=== PATIENT | female | born 1955 | race Two or more races ===

== ENCOUNTER 2017-08-06 06:19 | Emergency (ER) | payer SELFPAY ==
[~2017-08-06] VITALS: Ht 149.9 cm; Wt 63.5 kg
[~2017-08-06 06:19] MED LIST: IBUPROFEN600 MG PO; VICODIN 5-5001 EACH PO
[2017-08-06 06:45] VITALS: BP 132/82
--- NOTE | 2017-08-06 06:52 | Emergency Room Report ---
History of Present Illness General Chief Complaint: Multiple Trauma/Fall Source: Patient Present Illness HPI The patient presents 3 weeks after a fall. She was in her bathroom and slipped on coffee that she spilled after she saw a mouse. She hit both of her knees and also the right side of her face. She still has jaw pain and swelling in the side of her jaw. She also has some dizziness. She has bilateral knee pain and lower back pain. She has a history of back problems and had x-rays done 6 years ago that were negative. The pain radiates somewhat down the left side of her back. She states she scraped both of her knees and the scrapes have healed. She's having difficulty at work. She can't sit for prolonged period of time and also has some lower back pain when she's moving about. There is no incontinence, perineal numbness, incontinence, blood thinners, oncologic problems. No fevers, chills, chest pain, palpitations, nausea, vomiting, diarrhea, dysuria , abdominal pain, shortness of breath, depression, visual changes. 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 Now: No Reviewed Nursing Documentation: PMH: Agreed; PSxH: Agreed Nursing Documentation-PMH Past Medical History: No History, Except For Hx Asthma: Yes Review of Systems All Other Systems: negative except mentioned in HPI Physical Exam Vital Signs Date Time Temp Pulse Resp B/P (MAP) Pulse Ox O2 Delivery O2 Flow Rate FiO2 08/06/17 06:25 98.0 88 16 132/82 96 Room Air 98.1 Sp02 EP Interpretation: reviewed, normal General Appearance: well appearing, no apparent distress Head: normocephalic, atraumatic Eyes: bilateral eye normal inspection, bilateral eye PERRL ENT: hearing grossly normal, normal voice, moist mucus membranes, other - The TMJ, there is a nodule in the cheek on the right-hand side Neck: full range of motion, supple Respiratory: no respiratory distress, speaking full sentences Cardiovascular #1: regular rate, rhythm Cardiovascular #2: 2+ radial (R) Gastrointestinal: normal bowel sounds Genitourinary: no CVA tenderness Musculoskeletal: digits/nails normal, gait/station normal, normal range of motion, no calf tenderness, other - Muscle spasms and upper and lower back. Straight leg raise is negative bilaterally Neurologic: alert, oriented x3, motor strength/tone normal, DTRs symmetric, sensory intact, cerebellar normal, normal gait, speech normal Psychiatric: mood/affect normal Reflexes: 2+ knee (R), 2+ knee (L); 1+ ankle (R), 1+ ankle (L) Skin: abrasions - healed bilateral knees, larger L Medical Decision Making Diagnostic Impression: Primary Impression: Multiple injuries due to trauma ER Course Patient presents 3 weeks post trauma with facial pain dizziness back pain and knee pain. Based on her history and exam no x-rays are indicated at this time. She needs to be evaluated by her own doctor and have physical therapy prescribed. Differential includes sciatica, contusion, postconcussive syndrome , nodule post hematoma on the right-hand side of the face. The patient will be given Motrin here. I discussed the need for physical therapy and re-evaluation of the nodule in her cheek. She understands the treatment plan. The patient is stable for outpatient observation and treatment. Last Vital Signs Date Time Temp Pulse Resp B/P (MAP) Pulse Ox O2 Delivery O2 Flow Rate FiO2 08/06/17 07:04 0/0 08/06/17 06:51 98.0 08/06/17 06:45 88 16 96 Room Air Status: improved Disposition: HOME, SELF-CARE Condition: Improved Scripts Methocarbamol* (ROBAXIN*) 500 Mg Tablet 500 MG PO TID, #10 TAB 0 Refills Prov: Armando Landis M.D. 08/06/17 Tramadol Hcl* (ULTRAM*) 50 Mg Tablet 50 MG ORAL Q6H PRN for For Pain, #10 TAB 0 Refills Prov: Armando Landis M.D. 08/06/17 Ibuprofen* (MOTRIN*) 600 Mg Tablet 600 MG ORAL Q6H PRN for For Pain, #20 TAB Prov: Armando Landis M.D. 08/06/17 Armando Landis M.D. Aug 06, 2017 06:52
[2017-08-06] MEDS ORDERED: ROBAXIN500 MG PO (06:58)
[2017-08-06] MEDS ORDERED: TRAMADOL HCL50 MG ORAL (06:58)
[2017-08-06] MEDS ORDERED: IBUPROFEN600 MG ORAL (06:58)
[2017-08-06 07:04] VITALS: BP 0/0
== END 2017-08-06 07:04 | disposition home or self-care (01) ==
LOC: EMR 06:43
DX: R68.84 Jaw pain (principal); R42 Dizziness and giddiness; M54.5 Low back pain; M25.561 Pain in right knee; F17.200 Nicotine dependence, unspecified, uncomplicated; Z88.8 Allergy status to other drugs, medicaments and biological substances; M62.838 Other muscle spasm
CPT/HCPCS: 99284